=== PATIENT | male | born 1990 | race Caucasian/White ===

== ENCOUNTER → 2020-10-08 | Outpatient (CLI) | payer OTHER ==
--- NOTE | 2020-10-08 10:27 | PFTRPT ---
Height: 71.00 Inches Weight: 190.00 Lbs BSA: 2.06 Diagnosis: R06.2 DATE: 10/08/2020 ORDERING PHYSICIAN: Dwight Alexander, Pre and post bronchodilator studies have excellent technical quality. Forced vital capacity is normal. FEV1 is in proportion. Obstructive index is therefore normal. Expiratory limit of the flow-volume loop is normal. No significant bronchodilator response is identified. Total lung capacity is reasonably normal. Residual volume is borderline. Diffusing capacity is normal and remains normal when corrected for alveolar volume. Hemoglobin is acceptable at 16.6. Airway resistance and conductance are normal. IMPRESSION: Essentially normal study. MTDD
== END ==
LOC: M CARPUL 09:47
PROVIDERS: ATTEND Internal Medicine Pulmonary Disease
DX: R06.2 Wheezing (principal)

== ENCOUNTER → 2020-10-09 | Outpatient (CLI) | payer OTHER ==
[~2020-10-09] MED LIST: METHACHOLINE KIT (J7674) INH ONE
--- NOTE | 2020-10-09 09:32 | PFTRPT ---
Height: 71.00 Inches Weight: 190.00 Lbs BSA: 2.06 Diagnosis: R06.2 DATE: 10/09/2020 ORDERED BY: Niurka Richardson NP QUALITY: Study of excellent technical quality. PROCEDURE: Under protocol, methacholine was administered. At a dose of 0.25 mg or 1.375 CDUs, a 26% decline in the FEV1 was noted. PC of 0.10 is significant. Flow rates did return to baseline post bronchodilator administration. IMPRESSION: Positive methacholine challenge study. MTDD
== END ==
LOC: M CARPUL 08:55 → EDUNIT# 10-13 08:00
PROVIDERS: ATTEND Nurse Practitioner Adult Health
DX: R06.2 Wheezing (principal)
CPT/HCPCS: 94070; J7674